=== PATIENT | male | born 1980 | race Caucasian/White ===

== ENCOUNTER 2018-02-10 13:31 | Emergency (ER) | payer OTHER ==
[~2018-02-10] VITALS: Ht 182.9 cm; Wt 83.9 kg
[2018-02-10] MEDS: KETOROLAC 30 MG/ML VIAL IM ONE (13:58)
[2018-02-10] MEDS: methylPREDNISolone 80 MG/ML (DEPO MEDROL) VIAL IM ONE (13:58)
--- NOTE | 2018-02-10 13:58 | ED Back Pain ---
General Chief Complaint: Back Problems Stated Complaint: LOWER BACK PAIN Nursing Triage Note: pt reports low back pain since this am. reports chronic back pain but reports it flairs up. pt states has appt for preop at the [facility] for wednesday. pt denies any known injury Nursing Sepsis Screen: No Definite Risk Source of Information: Patient Exam Limitations: No Limitations History of Present Illness Date Seen by Provider: Feb 14, 2018 Time Seen by Provider: 13:42 Initial Comments This 31 sexual man presents to emergency room with complaints of lower back pain exacerbations since this morning. He reports known lumbar disc disease and imaging studies on file with the [facility]. He has a follow-up appointment with the [facility] next week. He reports frequent flares of his lumbar pain and lumbar radiculopathy. He often receives steroid injections which helped him significantly. He believes it is been 2 months since his last injection. He denies any bowel or bladder dysfunction, but he does have bilateral radicular symptoms. He remains ambulatory. Allergies and Home Medications Allergies Coded Allergies: No Known Drug Allergies (Unverified , 02/10/18) Home Medications Cyclobenzaprine HCl 10 Mg Tablet, 10 MG PO TID PRN for SPASMS Prescribed by: ALIDA MCKEON on 02/10/18 2443 Prednisone 10 Mg Tab, 10 MG PO UD Take 3 tablets daily for 3 days, then 2 tablets daily for 3 days, then 1 tablet daily for 3 days Prescribed by: ALIDA MCKEON on 02/10/18 2869 Patient Home Medication List Home Medication List Reviewed: Yes Review of Systems Constitutional: no symptoms reported EENTM: no symptoms reported Respiratory: no symptoms reported Cardiovascular: no symptoms reported Gastrointestinal: no symptoms reported Genitourinary: no symptoms reported Musculoskeletal: see HPI Skin: no symptoms reported Psychiatric/Neurological: See HPI Past Rschhrj-Lrmuow-Lyxnzj Hx Past Med/Social Hx: Reviewed and Corrections made Patient Social History Alcohol Use: Denies Use Recreational Drug Use: No Smoking Status: Current Everyday Smoker Type Used: Cigarettes Recent Foreign Travel: No Contact w/Someone Who Travel: No Recent Infectious Disease Expo: No Physical Abuse: No Sexual Abuse: No Mistreated: No Fear: No Past Medical History Surgeries: Yes (r shoulder, umbilical hernia, oral sx) Abdominal, Orthopedic Respiratory: No Cardiac: No Neurological: No Genitourinary: No Gastrointestinal: No Musculoskeletal: Yes Degenerate Disk Disease Endocrine: No HEENT: No Cancer: No Nursing Suicide Risk Score: 0 Blood Disorders: No Physical Exam Vital Signs Vital Signs - First Documented 02/10/18 13:39 Temp 97.3 Pulse 83 Resp 18 B/P (MAP) 143/103 (116) Pulse Ox 98 Capillary Refill : Less Than 3 Seconds Height, Weight, BMI Height: 6'" Weight: 185lbs. oz. 83.508500ej; BMI Method:Stated General Appearance: No Apparent Distress, WD/WN HEENT: PERRL/EOMI, Normal ENT Inspection Neck: Normal Inspection Cardiovascular: Regular Rate, Rhythm, No Edema, No Murmur Respiratory: Lungs Clear, Normal Breath Sounds, No Accessory Muscle Use Back: Normal Inspection, No Vertebral Tenderness (Lower lumbar spine and paraspinous regions especially near the left SI joint area) Extremity: Normal Inspection, No Pedal Edema Neurologic/Psychiatric: Alert, Oriented x3, No Motor/Sensory Deficits, Normal Mood/Affect, community sports coordinator II-XII Norm as Tested Skin: Normal Color, Warm/Dry Progress/Results/Core Measures Results/Orders My Orders Orders - ALIDA MACHADO MD Methylprednisolone Acetate Inj (Depo-Med (02/10/18 14:00) Ketorolac Injection (Toradol Injection) (02/10/18 14:00) Vital Signs/I&O 02/10/18 02/10/18 13:39 14:15 Temp 97.3 Pulse 83 87 Resp 18 20 B/P (MAP) 143/103 (116) 135/87 Pulse Ox 98 98 Blood Pressure Mean: 116 Progress Progress Note : Progress Note Patient received a Depo-Medrol injection as well as a prednisone taper prescription to take if the injection alone was not sufficient. Toradol was also administered. Departure Impression Primary Impression: Lower back pain Qualified Codes: M54.41 - Lumbago with sciatica, right side; M54.42 - Lumbago with sciatica, left side; G89.29 - Other chronic pain Additional Impression: Bilateral lumbar radiculopathy Disposition: 01 HOME, SELF-CARE Condition: Improved Departure-Patient Inst. Decision time for Depature: 13:54 Referrals: NO,LOCAL PHYSICIAN (PCP/Family) Primary Care Physician Patient Instructions: Radiculopathy (DC) Add. Discharge Instructions: For pain control take ibuprofen up to 600 mg every 6 hours as needed. Add Tylenol (acetaminophen) up to 1000 mg every 6 hours as needed for additional pain relief. If you are not getting significant relief from the steroid injection after 24 hours, consider starting the steroid taper. If you experience notable weakness in the lower extremities or difficulty with control of bowel or bladder, please return to the ER promptly. [facility] further [facility] of the lumbar spine and pelvis. All discharge instructions reviewed with patient and/or family. Voiced understanding. Scripts Prednisone (Prednisone) 10 Mg Tab 10 MG PO UD, #18 TAB Take 3 tablets daily for 3 days, then 2 tablets daily for 3 days, then 1 tablet daily for 3 days Prov: ALIDA MACHADO MD 02/10/18 Cyclobenzaprine HCl (Cyclobenzaprine HCl) 10 Mg Tablet 10 MG PO TID PRN for SPASMS, #10 TAB Prov: ALIDA MACHADO MD 02/10/18 ALIDA MACHADO MD Feb 10, 2018 13:58
[2018-02-10] MEDS ORDERED: PRD10T PO (13:59)
[2018-02-10] MEDS ORDERED: CYCL10TA9 PO (13:59)
[2018-02-10 14:15] VITALS: BP 135/87
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
== END 2018-02-10 14:15 | disposition home or self-care (01) ==
LOC: ER 13:33
DX: M54.16 Radiculopathy, lumbar region (principal); F17.210 Nicotine dependence, cigarettes, uncomplicated; Z87.19 Personal history of other diseases of the digestive system
CPT/HCPCS: 96372; 99284

== ENCOUNTER 2018-03-14 08:45 | Emergency (ER) | payer OTHER ==
[~2018-03-14] VITALS: Ht 190.5 cm; Wt 77.1 kg
[~2018-03-14 08:45] MED LIST: CYCL10TA9 PO; PRD10T PO
[2018-03-14] MEDS ORDERED: hydrOXYzine (VISTARIL) 25 MG CAP PO ONE (09:15)
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
[2018-03-14] MEDS ORDERED: HYDR25CA PO (09:21)
[2018-03-14 09:33] VITALS: BP 121/77
--- OUTSIDE RECORDS SUMMARY | 2018-03-14 10:39 | XMS REPORT | Continuity of Care Document ---
Author Author [facility] Organization [facility] Address Unknown Phone Unavailable Allergies Active Description [...] Status Pt. Type Provider Facility Loc./Unit Complaint [id number] 12/22/2014 08:47:00 12/22/2014 11:17:00 DIS Emergency FABIENNE HANSEN Guarantor/ person ER Back Pain [id number] 11/22/2014 10:08:00 11/22/2014 10:50:00 DIS Emergency Vanesa Sparrow [facility] ER Back Pain
== END 2018-03-14 09:32 | disposition home or self-care (01) ==
LOC: EDUNIT# 08:45 → ER 08:46
DX: F15.10 Other stimulant abuse, uncomplicated (principal); F41.0 Panic disorder [episodic paroxysmal anxiety]; F17.210 Nicotine dependence, cigarettes, uncomplicated; Z87.19 Personal history of other diseases of the digestive system
CPT/HCPCS: 99283